=== PATIENT | male | born 2000 | race Caucasian/White ===

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

== ENCOUNTER 2019-06-16 23:06 | Emergency (ER) | payer OTHER ==
[2019-06-17] MEDS ORDERED: oxyCODONE/Acetamin 5/325 MG* TAB PO ONE (00:14)
--- NOTE | 2019-06-17 00:14 | ED ---
Lower Extremity - HPI Summary HPI Summary: 19-year-old male presents with left ankle injury today. States he rolled his ankle playing soccer. His pain is greatest on lateral aspect of left ankle. He has a history of ankle sprain. Denies any numbness tingling. No previous fracture area. History of eczema. He took some ibuprofen prior to arrival. - History of Current Complaint Chief Complaint: EDExtremityLower Stated Complaint: L ANKLE PAIN PER PT Time Seen by Provider: 06/16/19 23:24 Pain Intensity: 7 - Allergies/Home Medications Allergies/Adverse Reactions: Allergies Allergy/AdvReac Type Severity Reaction Status Date / Time nut - unspecified Allergy Hives Verified 06/16/19 23:47 peanut Allergy Hives Verified 06/16/19 23:47 Home Medications: Home Medications Albuterol HFA INHALER* [Ventolin HFA Inhaler*] 2 puff INH Q4H PRN 03/11/17 [ History Confirmed 06/16/19] Cetirizine* [ZyrTEC 10 MG TAB*] 10 mg PO DAILY PRN 03/11/17 [History Confirmed 06/16/19] Dupilumab [Dupixent] 300 mg SUBCUT Q14D 03/11/17 [History Confirmed 06/16/19] Hydrocortisone 1% CREAM* 1 applic TOPICAL DAILY PRN #4 deborah 03/16/17 [Rx Confirmed 06/16/19] Mupirocin 2% OINT* [Bactroban 2 % Oint*] 1 applic TOPICAL TID #5 tube 03/16/17 [ Rx Confirmed 06/16/19] Soap [Cetaphil Gentle Cleansing] 1 bar EX DAILY #1 bar 03/16/17 [Rx Confirmed ] oxyCODONE/Acetamin 5/325 MG* [Percocet 5/325 TAB*] 1 tab PO Q6H PRN #12 tab MDD 4 06/17/19 [Rx] PMH/Surg Hx/FS Hx/Imm Hx Endocrine/Hematology History: Denies: Hx Anticoagulant Therapy Respiratory History: Reports: Hx Asthma Musculoskeletal History: Reports: Other Musculoskeletal History - eczema Sensory History: Denies: Hx Contacts or Glasses, Hx Legally Blind, Hx Deafness, Hx Hearing Aid Opthamlomology History: Denies: Hx Contacts or Glasses, Hx Legally Blind - Surgical History Surgery Procedure, Year, and Place: none Infectious Disease History: No Infectious Disease History: Denies: Traveled Outside the [place] in Last 30 Days - Family History Known Family History: Positive: Other - father adopted; mother alive and well - Social History Alcohol Use: Occasionally Substance Use Type: Reports: None Smoking Status (MU): Never Smoked Tobacco Review of Systems Negative: Fever Negative: Chest Pain Negative: Shortness Of Breath Positive: Myalgia - left ankle All Other Systems Reviewed And Are Negative: Yes Physical Exam Triage Information Reviewed: Yes Vital Signs On Initial Exam: Initial Vitals Temp Pulse Resp BP Pulse Ox 99.6 F 116 20 165/99 96 06/16/19 23:10 06/16/19 23:10 06/16/19 23:10 06/16/19 23:10 06/16/19 23:10 Vital Signs Reviewed: Yes Appearance: Positive: Well-Appearing Skin: Positive: Warm, Dry Head/Face: Positive: Normal Head/Face Inspection Eyes: Positive: Normal, Conjunctiva Clear ENT: Positive: Pharynx normal Respiratory/Lung Sounds: Positive: Clear to Auscultation, Breath Sounds Present Cardiovascular: Positive: Normal, RRR Musculoskeletal: Positive: Limited @ - left ankle, Other - tenderness over lateral malleolus, good pulses, Neurological: Positive: Normal Psychiatric: Positive: Normal Procedures - Sedation Patient Received Moderate/Deep Sedation with Procedure: No - Splinting ankle Location: left ankle Hand-Made Type: orthoglass Splint: sugar-tong Pre-Proc Neuro Vasc Exam: normal Post-Proc Neuro Vasc Exam: normal Splint Applied by Provider: aMrce [facility] - Vital Signs Vital Signs Temp Pulse Resp BP Pulse Ox 06/16/19 23:10 99.6 F 116 20 165/99 96 - Laboratory Lab Statement: Any lab studies that have been ordered have been reviewed, and results considered in the medical decision making process. - Radiology ankle Radiology Interpretation Completed By: ED Physician Summary of Radiographic Findings: fibula fracture Lower Extremity Course/Dx - Course Course Of Treatment: 19-year-old male presents with left ankle injury today. States he rolled his ankle playing soccer. His pain is greatest on lateral aspect of left ankle. He has a history of ankle sprain. Denies any numbness tingling. No previous fracture area. History of eczema. He took some ibuprofen prior to arrival. On exam tenderness over lateral malleolus of the ankle. Neurovascular intact. X-ray shows a particular fracture. Placed in sugar tong splint. Gave Crutches. Told to follow up with ortho. Patient understands and agrees with the plan. - Diagnoses Differential Diagnosis/HQI/PQRI: Positive: Fracture (Closed), Sprain, Strain Provider Diagnoses: Left fibular fracture Discharge ED - Sign-Out/Discharge Documenting (check all that apply): Patient Departure - Discharge Plan Condition: Good Disposition: HOME Prescriptions: oxyCODONE/Acetamin 5/325 MG* [Percocet 5/325 TAB*] 1 tab PO Q6H PRN #12 tab MDD 4 PRN Reason: Pain - Severe Patient Education Materials: Ankle Fracture (ED) Referrals: Venu Triana MD [Medical Doctor] - Additional Instructions: Use crutches Keep splint on area and keep dry Call ortho office tomorrow to set up appointment for follow up Use ibuprofen for pain every 6 hours and use percocet for breakthrough pain every 6 hours Ice, elevate Return to ED if develop any new or worsening symptoms - Billing Disposition and Condition Condition: GOOD Disposition: Home
[2019-06-17 01:07] VITALS: BP 153/94
== END 2019-06-17 00:28 | disposition home or self-care (01) ==
LOC: ED 23:06
DX: S82.435A Nondisplaced oblique fracture of shaft of left fibula, initial encounter for closed fracture (principal); X50.1XXA Overexertion from prolonged static or awkward postures, initial encounter; Y93.66 Activity, soccer; Y92.9 Unspecified place or not applicable; J45.909 Unspecified asthma, uncomplicated; Z91.018 Allergy to other foods; Z91.010 Allergy to peanuts; Z79.51 Long term (current) use of inhaled steroids
CPT/HCPCS: 99282; A9270-GY